=== PATIENT | female | born 1945 | race Caucasian/White ===

== ENCOUNTER 2018-09-05 10:26 | Inpatient (IN) | payer OTHER ==
[~2018-09-05] VITALS: Ht 144.8 cm; Wt 57.6 kg
[2018-09-05 10:33] VITALS: Ht 144.8 cm; Wt 57.6 kg
[2018-09-05 10:57] LABS: CALCIUM 9.3 mg/dL (8.5-10.1); CARBON DIOXIDE 29.5 mmol/L (21-32); CHLORIDE SERUM 102 mmol/L (98-107); CREATININE SERUM 0.9 mg/dL (0.6-1.0); GLUCOSE SERUM 117 mg/dL (74-106); POTASSIUM SERUM 3.8 mmol/L (3.5-5.1); SODIUM SERUM 139 mmol/L (136-145)
[2018-09-05 11:02] LABS: ALBUMIN 4.3 g/dL (3.4-5.0); ALKALINE PHOSPHATASE 84 U/L (46-116); ALT/SGPT 49 U/L (14-59); AST/SGOT 46 U/L (15-37); BASOPHIL % 0.5 % (0-2); BILIRUBIN TOTAL 0.55 mg/dL (0.20-1.00); PLATELET COUNT 242 x10^3mcL (130-400); RED CELL DISTRIBUTION WIDTH 12.8 % (11.5-14.5); TOTAL PROTEIN, SERUM 7.9 g/dL (6.4-8.2)
[2018-09-05 15:20] VITALS: BP 138/67
[2018-09-05] MEDS ORDERED: LOV60I SC (18:00)
[2018-09-05] MEDS ORDERED: NIT0.4 SL (18:00)
[2018-09-05 18:04] VITALS: BP 131/69
[2018-09-05 18:09] VITALS: BP 131/69
[2018-09-05 21:26] VITALS: BP 149/67
== END 2018-09-05 22:30 | disposition short-term general hospital (02) | DRG 282 ==
LOC: ED 10:26 → DU 13:54
PROVIDERS: Emergency Medicine; ADMIT Internal Medicine Pulmonary Disease
DX: I21.4 Non-ST elevation (NSTEMI) myocardial infarction (principal); Z79.82 Long term (current) use of aspirin; Z68.23 Body mass index [BMI] 23.0-23.9, adult
CPT/HCPCS: Q9967